=== PATIENT | male | born 1940 | race Caucasian/White ===

== ENCOUNTER 2022-01-17 12:34 | Emergency (ER) | payer MEDICARE, MEDICAID ==
[~2022-01-17] VITALS: Ht 175.3 cm; Wt 69.5 kg
[~2022-01-17 12:34] MED LIST: ASPI-986 MT; ATOR10TA MT; OMEP20TA23 MT
[2022-01-17 15:00] VITALS: BP 147/65
[2022-01-17 15:35] LABS: BASOPHILS % 0.3 % (0.0-2.0); HEMATOCRIT. 36.2 % (42.0-52.0); HEMOGLOBIN. 12.3 g/dL (14.0-18.0); LYMPHOCYTES % 37.9 % (20.0-50.0); MEAN CORPUSCULAR HEMOGLOBIN 31.4 pg (28.0-32.0); MEAN CORPUSCULAR VOLUME 92.1 fL (80.0-94.0); MEAN PLATELET VOLUME 8.5 fl (7.4-10.4); MONOCYTES % 9.5 % (2.0-8.0); NEUTROPHILS % 50.3 % (40.0-76.0); PLATELET 170 x1000/uL (130-400); RED BLOOD CELL COUNT 3.94 mill/uL (4.7-6.1); RED CELL DISTRIBUTION WIDTH 15.5 % (11.6-14.6)
[2022-01-17 15:47] LABS: CHLORIDE 108 mEq/L (98-107)
[2022-01-17 15:48] LABS: PROTHROMBIN TIME 10.9 sec (9.6-11.0)
== END 2022-01-17 16:00 | disposition home or self-care (01) ==
LOC: ER 12:34
DX: R31.9 Hematuria, unspecified (principal); I10 Essential (primary) hypertension; E78.00 Pure hypercholesterolemia, unspecified; Z85.9 Personal history of malignant neoplasm, unspecified; Z79.82 Long term (current) use of aspirin; Z98.62 Peripheral vascular angioplasty status
CPT/HCPCS: 36415; 80053; 85025; 86850; 86900; 99283